=== PATIENT | female | born 1995 | race Caucasian/White ===

== ENCOUNTER 2022-03-01 16:18 | Emergency (ER) | payer OTHER ==
[2022-03-01] MEDS ORDERED: LACTATED RINGERS SOLUTION 1000 ML INFUS.BAG IV ONE (16:56)
[2022-03-01] MEDS ORDERED: ONDANSETRON 4 MG/2 ML VIAL IVPUSH ONE (16:56)
[2022-03-01] MEDS ORDERED: ACETAMINOPHEN 1000 MG/100 ML BAG IVPB ONE (16:56)
[2022-03-01 17:03] VITALS: BMI 27.4
[2022-03-01] MEDS ORDERED: ACETAMINOPHEN 500 MG TABLET (FP) PO ONE (17:03)
[2022-03-01] MEDS ORDERED: ONDANSETRON *ODT* 4 MG TABLET SL ONE (17:03)
[2022-03-01] MEDS ORDERED: ACETAMINOPHEN 325 MG TABLET (FP) ONE (17:07)
[2022-03-01] MEDS ORDERED: ONDANSETRON *ODT* 4 MG TABLET ONE (17:10)
[2022-03-01 18:58] VITALS: BP 118/70; PULSE 89; TEMP 99.2
== END 2022-03-01 18:58 | disposition home or self-care (01) ==
LOC: FER 16:18
DX: K52.9 Noninfective gastroenteritis and colitis, unspecified (principal)
CPT/HCPCS: 0241U-QW; 84703; 87807; 99283-25; C9803-CS; Q0162; U0003; U0005